=== PATIENT | female | born 1955 | race Caucasian/White ===

== ENCOUNTER 2022-06-14 10:58 | Outpatient (CLI) | payer OTHER ==
[2022-06-14] MEDS ORDERED: Iopamidol 370 76% 100 ML VIAL ONE (12:31)
== END 2022-06-14 10:59 | disposition home or self-care (01) ==
LOC: CT 10:58
PROVIDERS: ATTEND Internal Medicine
DX: R10.33 Periumbilical pain (principal); R10.13 Epigastric pain; R11.0 Nausea; R63.4 Abnormal weight loss; K63.89 Other specified diseases of intestine; K22.89 Other specified disease of esophagus; K44.9 Diaphragmatic hernia without obstruction or gangrene
CPT/HCPCS: 74177; 82565; Q9967

== ENCOUNTER 2022-06-28 07:01 | Day surgery (SDC) | payer MEDICARE ==
[2022-06-27 10:18] VITALS: BMI 23.1
[2022-06-28] MEDS ORDERED: PHENYLEPHRINE-NS 100 MCG/ML 10 ML SYRINGE ONE (09:21)
[2022-06-28] MEDS ORDERED: PROPOFOL 200 MG/20 ML VIAL ONE (09:21)
[2022-06-28] MEDS ORDERED: Ondansetron PF 4 MG/2 ML Vial ONE (10:31)
== END 2022-06-28 10:54 | disposition home or self-care (01) ==
LOC: SDC 07:01
PROVIDERS: ATTEND Internal Medicine
PROC: 0DB98ZX Excision of Duodenum, Via Natural or Artificial Opening Endoscopic, Diagnostic (ICD-10-PCS; principal; 2022-06-28)
PROC: 0DB78ZX Excision of Stomach, Pylorus, Via Natural or Artificial Opening Endoscopic, Diagnostic (ICD-10-PCS; 2022-06-28)
PROC: 0DBL8ZX Excision of Transverse Colon, Via Natural or Artificial Opening Endoscopic, Diagnostic (ICD-10-PCS; 2022-06-28)
DX: D12.3 Benign neoplasm of transverse colon (principal); K29.50 Unspecified chronic gastritis without bleeding; K57.30 Diverticulosis of large intestine without perforation or abscess without bleeding; K29.80 Duodenitis without bleeding; K44.9 Diaphragmatic hernia without obstruction or gangrene; F17.290 Nicotine dependence, other tobacco product, uncomplicated; K21.9 Gastro-esophageal reflux disease without esophagitis; E78.5 Hyperlipidemia, unspecified; I69.328 Other speech and language deficits following cerebral infarction; E03.9 Hypothyroidism, unspecified; M19.90 Unspecified osteoarthritis, unspecified site; R63.4 Abnormal weight loss; Z68.23 Body mass index [BMI] 23.0-23.9, adult; Z79.899 Other long term (current) drug therapy; Z90.49 Acquired absence of other specified parts of digestive tract
CPT/HCPCS: 88305; 88342; J2405; J2704

== ENCOUNTER 2022-07-16 12:55 | Emergency (ER) | payer MEDICARE ==
[~2022-07-16 12:55] MED LIST: Iopamidol-370 76% 500 ML 1 ML ONE
[2022-07-16 16:24] LABS: #Eosinphils 0.1 thou/uL (0.0-0.7); #Lymphocytes 1.6 thou/uL (1.20-3.40); #Monocytes 0.5 thou/uL (0.11-0.59); #Neutrophils 3.7 thou/uL (1.40-6.50); %Basophils 0.5 % (0.0-1.0); %Eosinophils 1.1 % (0.0-10.0); %Lymphocytes 27.3 % (21.0-51.0); %Monocytes 9.1 % (0.0-10.0); %Neutrophils 62.1 % (42.0-75.0); Mean Corpuscular HGB CONC 34.9 g/dL (32.0-36.0); Mean Corpuscular Hemoglobin 36.4 pg (27.0-31.0); Mean Platelet Volume 8.1 fL (7.4-10.4); Platelet Count 225 10x3/uL (130-400); RBC Distribution Width 12.5 % (11.5-14.5); Red Blood Cell (RBC) Count 4.11 mill/uL (4.20-5.40)
[2022-07-16 16:45] LABS: ALT (SGPT) 114 U/L (8-55); AST (SGOT) 155 U/L (5-34); Albumin 4.3 g/dL (3.4-4.8); Alkaline Phosphatase 116 U/L (40-110); Anion Gap 18 mmol/L (10-20); BUN (Urea Nitrogen) 15 mg/dL (9.8-20.1); Bilirubin, Total 1.1 mg/dL (0.2-1.2); Calc. Creatinine Clearance 0 mL/min (70-130); Calcium 8.9 mg/dL (7.8-10.44); Carbon Dioxide 25 mmol/L (23-31); Chloride 100 mmol/L (98-107); Estimated GFR 98; Globulin 3.1 g/dL (2.4-3.5); Glucose 128 mg/dL (80-115); Lipase 27 U/L (8-78); Potassium 3.5 mmol/L (3.5-5.1); Protein, Total 7.4 g/dL (5.8-8.1); Sodium 139 mmol/L (136-145)
[2022-07-16] MEDS ORDERED: Ondansetron PF 4 MG/2 ML Vial ONE (17:25)
[2022-07-16] MEDS ORDERED: Promethazine HCl 25 MG in Sodium Chloride 0.9% 50 ML IVPB SCH (19:30)
== END 2022-07-16 22:41 | disposition home or self-care (01) ==
LOC: ERS 12:55
DX: K29.70 Gastritis, unspecified, without bleeding (principal); R11.2 Nausea with vomiting, unspecified; E78.5 Hyperlipidemia, unspecified; F17.290 Nicotine dependence, other tobacco product, uncomplicated
CPT/HCPCS: 36415; 71046; 74177; 80053; 83690; 85025; 96374; 96375; J2405; J2550; Q9967

== ENCOUNTER → 2022-08-01 | Day surgery (SDC) | payer MEDICARE ==
[~2022-08-01] MED LIST changes: -Iopamidol-370 76% 500 ML 1 ML ONE; +Lidocaine Jelly 2% Urojet 10 ML ONE
== END | disposition home or self-care (01) ==
LOC: SDC 14:50
PROVIDERS: ATTEND Physician Assistant Medical
DX: K22.4 Dyskinesia of esophagus (principal); R13.10 Dysphagia, unspecified; K66.0 Peritoneal adhesions (postprocedural) (postinfection); K46.9 Unspecified abdominal hernia without obstruction or gangrene; K21.9 Gastro-esophageal reflux disease without esophagitis; F17.290 Nicotine dependence, other tobacco product, uncomplicated; Z85.3 Personal history of malignant neoplasm of breast; Z86.73 Personal history of transient ischemic attack (TIA), and cerebral infarction without residual deficits; Z79.899 Other long term (current) drug therapy
CPT/HCPCS: 91010; J2001